=== PATIENT | female | born 1970 | race Caucasian/White ===

== ENCOUNTER 2017-04-13 08:19 | Emergency (ER) | payer BC ==
[~2017-04-13] VITALS: Ht 152.4 cm; Wt 74.8 kg
[2017-04-13] MEDS ORDERED: NAPROSYN500 MG PO (11:45)
[2017-04-13] MEDS ORDERED: EFFEXOR XR37.5 MG PO (11:46)
[2017-04-13] MEDS ORDERED: PRILOSEC20 MG PO (11:46)
== END 2017-04-13 09:25 | disposition short-term general hospital (02) ==
LOC: ER 08:19
DX: G43.909 Migraine, unspecified, not intractable, without status migrainosus (principal); Z88.0 Allergy status to penicillin
CPT/HCPCS: J1885; J2175; J2550